=== PATIENT | female | born 1955 | race Two or more races ===

== ENCOUNTER 2022-01-18 18:26 | Emergency (ER) | payer MEDICAID ==
[~2022-01-18] VITALS: Ht 152.4 cm; Wt 77.1 kg
--- NOTE | 2022-01-18 18:30 | NUR ---
BIB FAMILY W/ C/O L-SIDED CHEST PAIN RAD TO LUE AND UPPER BACK. PER FAMILY, PT ALSO C/O SORE THROAT, WEAKNESS, AND NAUSEA/VOMITING. FAMILY AT BEDSIDE, ENDORSES THAT PT IS NOT VACCINATED. TO ER BED 7.
--- NOTE | 2022-01-18 19:05 | NUR ---
DR CASILLAS AT BEDSIDE FOR EVAL
--- NOTE | 2022-01-18 19:09 | NUR ---
IV LINE ESTABLISHED ON LAC #20, BLOOD DRAWN AND SENT TO LAB.
--- NOTE | 2022-01-18 19:20 | NUR ---
COVID SWAB COLLECTED AND SENT TO LAB.
[2022-01-18 19:27] LABS: CALCIUM, SERUM 8.7 mg/dL (8.5-10.1); CARBON DIOXIDE 32 mmol/L (21-32); CHLORIDE 102 mmol/L (98-107); CREATININE 0.8 mg/dL (0.6-1.3); GLUCOSE 111 mg/dL (74-106); POTASSIUM 3.2 mmol/L (3.5-5.1); SODIUM SERUM 139 mmol/L (136-145); UREA NITROGEN, BLOOD 9 mg/dL (7-18)
[2022-01-18 20:18] LABS: BASOPHILS % (AUTO) 0.5 % (0.0-2.0); EOSINOPHILS % (AUTO) 0.6 % (0.0-6.0); HEMATOCRIT 37 % (33-45); HEMOGLOBIN 12.5 g/dL (11.5-14.8); LYMPHOCYTES # (AUTO) 1.2 K/uL (0.8-4.8); LYMPHOCYTES % (AUTO) 16.4 % (20.0-44.0); MEAN CORPUSCULAR HGB CONC 34 g/dl (31.0-36.0); MEAN CORPUSCULAR VOLUME 86 fL (82-100); MONOCYTES # (AUTO) 0.9 K/uL (0.1-1.30); MONOCYTES % (AUTO) 11.7 % (2.0-12.0); NEUTROPHILS # (AUTO) 5.4 K/uL (1.8-8.9); NEUTROPHILS % (AUTO) 70.8 % (43.0-81.0); PLATELET COUNT (AUTO) 352 K/uL (150-450); RED BLOOD CELL COUNT(AUTO) 4.32 MIL/uL (4.0-5.2); WHITE BLOOD COUNT (AUTO) 7.6 K/uL (4.3-11.0)
[2022-01-18] MEDS ORDERED: ACETAMINOPHEN 325 MG TABLET PO ONE (21:00)
[2022-01-18] MEDS ORDERED: ACETAMINOPHEN 325 MG TABLET ONE (21:38)
[2022-01-18] MEDS ORDERED: IBUP-1955 PO (21:58)
[2022-01-18] MEDS ORDERED: BENZ-13 PO (21:58)
--- NOTE | 2022-01-18 22:18 | NUR ---
Patient discharged to home in stable condition. Written and verbal after care instructions given. Patient verbalizes understanding of instruction. IV removed. Catheter intact and site benign. Pressure and 4x4 applied to site. No bleeding noted. pt ambulatory with a steady gait
[2022-01-19 01:09] VITALS: BP 130/67
== END 2022-01-18 22:18 | disposition home or self-care (01) ==
LOC: ER 18:29
DX: R07.9 Chest pain, unspecified (principal); R05.9 Cough, unspecified; Z20.822 Contact with and (suspected) exposure to COVID-19; E78.5 Hyperlipidemia, unspecified; I10 Essential (primary) hypertension; Z86.16 Personal history of COVID-19
CPT/HCPCS: 99285; 71045; 87426; 93005; 85025; 80048; 36415; 84484 ×2; C9803

== ENCOUNTER 2022-01-22 10:48 | Emergency (ER) | payer MEDICAID ==
[~2022-01-22] VITALS: Ht 160 cm; Wt 71.7 kg
[~2022-01-22 10:48] MED LIST: BENZ-13 PO; IBUP-1955 PO
--- NOTE | 2022-01-22 11:47 | NUR ---
DR CRANDALL AT BEDSIDE FOR EVAL
[2022-01-22] MEDS ORDERED: IV NS 0.9% 1,000 ML BAG IV ONE (12:00)
[2022-01-22] MEDS ORDERED: ONDANSETRON HCL/PF - ER 4 MG/2 ML VIAL IV ONE (12:00)
[2022-01-22] MEDS ORDERED: DEXAMETHASONE SOD PHOSPHATE 10 MG/ML VIAL IV ONE (12:00)
--- NOTE | 2022-01-22 12:07 | NUR ---
TECH AT BEDSIDE FOR EKG
--- NOTE | 2022-01-22 12:11 | NUR ---
IV LINE ESTABLISHED ON LAC #20, BLOOD DRAWN AND SENT TO LAB
--- NOTE | 2022-01-22 12:13 | NUR ---
TRANSMISSION SYSTEM OPERATOR AT BEDSIDE FOR XRAY
[2022-01-22] MEDS ORDERED: DEXAMETHASONE SOD PHOSPHATE 10 MG/ML VIAL ONE (12:17)
[2022-01-22] MEDS ORDERED: ONDANSETRON HCL/PF 4 MG/2 ML VIAL ONE (12:17)
[2022-01-22 12:31] LABS: BASOPHILS % (AUTO) 0.6 % (0.0-2.0); EOSINOPHILS % (AUTO) 0.2 % (0.0-6.0); HEMATOCRIT 37 % (33-45); HEMOGLOBIN 12.3 g/dL (11.5-14.8); LYMPHOCYTES # (AUTO) 0.8 K/uL (0.8-4.8); LYMPHOCYTES % (AUTO) 10.9 % (20.0-44.0); MEAN CORPUSCULAR HGB CONC 33 g/dl (31.0-36.0); MEAN CORPUSCULAR VOLUME 86 fL (82-100); MONOCYTES # (AUTO) 0.9 K/uL (0.1-1.30); MONOCYTES % (AUTO) 10.9 % (2.0-12.0); NEUTROPHILS % (AUTO) 77.4 % (43.0-81.0); PLATELET COUNT (AUTO) 338 K/uL (150-450); RED BLOOD CELL COUNT(AUTO) 4.32 MIL/uL (4.0-5.2); WHITE BLOOD COUNT (AUTO) 7.8 K/uL (4.3-11.0)
[2022-01-22 12:42] LABS: CALCIUM, SERUM 8.7 mg/dL (8.5-10.1); CARBON DIOXIDE 31 mmol/L (21-32); CHLORIDE 101 mmol/L (98-107); CREATININE 0.7 mg/dL (0.6-1.3); GLUCOSE 104 mg/dL (74-106); SODIUM SERUM 139 mmol/L (136-145); UREA NITROGEN, BLOOD 9 mg/dL (7-18)
[2022-01-22 12:48] LABS: ALANINE AMINOTRANSFERASE 24 U/L (12-78); ALBUMIN 2.7 g/dL (3.4-5.0); ALKALINE PHOSPHATASE 91 U/L (46-116); ASPARTATE AMINOTRANSFERASE 24 U/L (15-37); BILIRUBIN,DIRECT 0.1 mg/dL (0.0-0.2); BILIRUBIN,TOTAL 0.4 mg/dL (0.2-1.0); TOTAL PROTEIN, SERUM 6.9 g/dL (6.4-8.2)
[2022-01-22] MEDS ORDERED: POTASSIUM CHLORIDE 20 MEQ TAB.PRT.SR PO ONE ×2 (14:00→14:08)
[2022-01-22] MEDS ORDERED: DOXY100C2 PO (14:00)
[2022-01-22] MEDS ORDERED: ONDA4TAB11 PO (14:00)
[2022-01-22] MEDS ORDERED: DOXYCYCLINE HYCLATE (100 MG) 100 MG TABLET PO ONE (14:00)
[2022-01-22] MEDS ORDERED: DOXYCYCLINE HYCLATE (100 MG) 100 MG TABLET ONE (14:08)
--- NOTE | 2022-01-22 14:20 | NUR ---
IV removed. Catheter intact and site benign. Pressure and 4x4 applied to site. No bleeding noted.
--- NOTE | 2022-01-22 14:20 | NUR ---
Patient discharged to home in stable condition. Written and verbal after care instructions given. Patient verbalizes understanding of instruction.
[2022-01-22 14:22] VITALS: BP 130/73
== END 2022-01-22 14:33 | disposition home or self-care (01) ==
LOC: ER 10:54
DX: J18.9 Pneumonia, unspecified organism (principal); J02.9 Acute pharyngitis, unspecified; R11.2 Nausea with vomiting, unspecified; I10 Essential (primary) hypertension; E78.5 Hyperlipidemia, unspecified
CPT/HCPCS: 99285; 96374; 71045; 96361; 96375; 93005; 70360; 85025; 80048; 83690; 80076; 36415; 84484; J1100; J2405 ×2; J7030

== ENCOUNTER 2022-03-20 18:24 | Emergency (ER) | payer MEDICAID ==
[~2022-03-20] VITALS: Ht 162.6 cm; Wt 73.0 kg
[~2022-03-20 18:24] MED LIST changes: +DOXY100C2 PO; +ONDA4TAB11 PO
[2022-03-20 18:40] VITALS: BP 134/73
[2022-03-20] MEDS ORDERED: GUAI5LIQ10 PO (19:57)
--- NOTE | 2022-03-20 20:11 | NUR ---
Patient discharged to home in stable condition. Written and verbal after care instructions given. Patient verbalizes understanding of instruction. Pt ambulatory with a steady gait
== END 2022-03-20 20:12 | disposition home or self-care (01) ==
LOC: ER 18:26
DX: R05.9 Cough, unspecified (principal); I10 Essential (primary) hypertension; E78.5 Hyperlipidemia, unspecified; Z79.899 Other long term (current) drug therapy
CPT/HCPCS: 71045-TC

== ENCOUNTER 2022-05-02 18:40 | Inpatient (IN) | payer MEDICAID ==
[~2022-05-02] VITALS: Ht 157.5 cm; Wt 74.0 kg
[~2022-05-02 18:40] MED LIST changes: +GUAI5LIQ10 PO
--- NOTE | 2022-05-02 19:56 | NUR ---
BIBFAMILY C/O ABD PAIN X 1 WEEK, PATIENT IS A/O X 4, RR EVEN AND UNLABORED NO SOB NOTED, VSS, WILL CONTINUE TO MONITOR.
--- NOTE | 2022-05-02 20:14 | NUR ---
BLOOD WORK COLLECTED
[2022-05-02 20:23] LABS: BASOPHILS % (AUTO) 0.6 % (0.0-2.0); EOSINOPHILS % (AUTO) 0.7 % (0.0-6.0); HEMATOCRIT 37 % (33-45); HEMOGLOBIN 11.8 g/dL (11.5-14.8); LYMPHOCYTES # (AUTO) 1.3 K/uL (0.8-4.8); LYMPHOCYTES % (AUTO) 18.4 % (20.0-44.0); MEAN CORPUSCULAR HGB CONC 32 g/dl (31.0-36.0); MEAN CORPUSCULAR VOLUME 81 fL (82-100); MONOCYTES # (AUTO) 0.9 K/uL (0.1-1.30); MONOCYTES % (AUTO) 12.2 % (2.0-12.0); NEUTROPHILS # (AUTO) 4.8 K/uL (1.8-8.9); NEUTROPHILS % (AUTO) 68.1 % (43.0-81.0); PLATELET COUNT (AUTO) 411 K/uL (150-450); RED BLOOD CELL COUNT(AUTO) 4.49 MIL/uL (4.0-5.2); WHITE BLOOD COUNT (AUTO) 7.1 K/uL (4.3-11.0)
[2022-05-02 20:31] LABS: CALCIUM, SERUM 9.4 mg/dL (8.5-10.1); CARBON DIOXIDE 30 mmol/L (21-32); CHLORIDE 100 mmol/L (98-107); CREATININE 0.9 mg/dL (0.6-1.3); GLUCOSE 109 mg/dL (74-106); POTASSIUM 3.6 mmol/L (3.5-5.1); SODIUM SERUM 137 mmol/L (136-145); UREA NITROGEN, BLOOD 16 mg/dL (7-18)
--- NOTE | 2022-05-02 20:33 | NUR ---
BROUGHT TO CT DEPT
[2022-05-02 20:36] LABS: ALANINE AMINOTRANSFERASE 19 U/L (12-78); ALBUMIN 2.8 g/dL (3.4-5.0); ALKALINE PHOSPHATASE 90 U/L (46-116); ASPARTATE AMINOTRANSFERASE 25 U/L (15-37); BILIRUBIN,DIRECT 0.1 mg/dL (0.0-0.2); BILIRUBIN,TOTAL 0.3 mg/dL (0.2-1.0); LIPASE 113 U/L (73-393); TOTAL PROTEIN, SERUM 7.3 g/dL (6.4-8.2)
--- NOTE | 2022-05-02 20:45 | NUR ---
COVID SWAB DONE AND SENT TO LAB
[2022-05-02 20:55] LABS: SERUM AMMONIA < 10 umol/L (11-32)
[2022-05-02 21:37] LABS: BILIRUBIN,URINE NEGATIVE (NEGATIVE); COLOR,URINE YELLOW (YELLOW); LEUKOCYTE ESTERASE ,URINE NEGATIVE (NEGATIVE); NITRITE, URINE NEGATIVE (NEGATIVE); PH,URINE 5.5 (5.0-8.0); PROTEIN,URINE NEGATIVE (NEGATIVE); UGLUCOSE NEGATIVE (NEGATIVE); UROBILINOGEN,URINE 0.2 EU/dL (0.2)
[2022-05-02 21:44] LABS: BACTERIA,URINE None seen /HPF (None Seen); CALCIUM OXALATE CRYSTALS,UR Many /HPF (None Seen); MUCUS,URINE Few /LPF (None Seen); WBC,URINE 0-2 /HPF (0-3)
[2022-05-02] MEDS ORDERED: MAGNESIUM HYDROXIDE 30 ML UDC PO PRN (22:30)
[2022-05-02] MEDS ORDERED: MORPHINE SULFATE INJ 2 MG/ML DISP.SYRIN IV PRN (22:30)
[2022-05-02] MEDS ORDERED: ZOLPIDEM TARTRATE 5 MG TABLET PO PRN (22:30)
[2022-05-02] MEDS ORDERED: ACETAMINOPHEN 325 MG TABLET PO PRN (22:30)
[2022-05-02] MEDS ORDERED: ONDANSETRON HCL/PF 4 MG/2 ML VIAL IVP PRN (22:30)
[2022-05-02] MEDS ORDERED: Z GUARD REMEDY 4 OZ OINT TP PRN (22:30)
[2022-05-02] MEDS ORDERED: HYDROCODONE/APAP 5/325MG TABLET PO PRN (22:30)
[2022-05-02] MEDS ORDERED: MAG HYDROX/AL HYDROX/SIMETH 30 ML UDC PO PRN (22:30)
--- NOTE | 2022-05-03 05:16 | NUR ---
REGISTERED RADIATION THERAPIST AT PT BESIDE
[2022-05-03 07:04] LABS: THYROID STIMULATING HORMONE 3.298 uIU/mL (0.358-3.74)
--- NOTE | 2022-05-03 07:17 | NUR ---
REPORT GIVEN TO BERRY MUNOZ
[2022-05-03 07:18] LABS: ALBUMIN 2.4 g/dL (3.4-5.0); BILIRUBIN,DIRECT 0.2 mg/dL (0.0-0.2); BILIRUBIN,TOTAL 0.5 mg/dL (0.2-1.0); CREATININE 0.8 mg/dL (0.6-1.3); MAGNESIUM 2.2 mg/dL (1.8-2.4); PHOSPHORUS 4.4 mg/dL (2.5-4.9); POTASSIUM 4.1 mmol/L (3.5-5.1); TOTAL PROTEIN, SERUM 6.3 g/dL (6.4-8.2)
[2022-05-03 07:23] LABS: BASOPHILS % (AUTO) 0.4 % (0.0-2.0); EOSINOPHILS % (AUTO) 0.9 % (0.0-6.0); HEMATOCRIT 34 % (33-45); HEMOGLOBIN 11.1 g/dL (11.5-14.8); LYMPHOCYTES # (AUTO) 1.1 K/uL (0.8-4.8); LYMPHOCYTES % (AUTO) 17.6 % (20.0-44.0); MEAN CORPUSCULAR HGB CONC 33 g/dl (31.0-36.0); MEAN CORPUSCULAR VOLUME 82 fL (82-100); MONOCYTES # (AUTO) 0.8 K/uL (0.1-1.30); MONOCYTES % (AUTO) 12.4 % (2.0-12.0); NEUTROPHILS # (AUTO) 4.4 K/uL (1.8-8.9); NEUTROPHILS % (AUTO) 68.7 % (43.0-81.0); PLATELET COUNT (AUTO) 359 K/uL (150-450); RED BLOOD CELL COUNT(AUTO) 4.08 MIL/uL (4.0-5.2); WHITE BLOOD COUNT (AUTO) 6.5 K/uL (4.3-11.0)
--- NOTE | 2022-05-03 07:31 | NUR ---
GOT BED 324-2
--- NOTE | 2022-05-03 07:54 | NUR ---
REPORT GIVEN TO ELO FOR GLORIA
[2022-05-03 08:00] VITALS: BP 117/77
--- NOTE | 2022-05-03 08:30 | NUR ---
MOVED TO INPATIENT ROOM SAFELY
[2022-05-03 08:40] VITALS: BP 127/77
--- NOTE | 2022-05-03 09:10 | NUR ---
MS BARBER NOTES PT ADMITTED TO UNIT VIA ROTOE AT 0835 WITH DIAGNOSIS OF INTRACTABLE ABDOMINAL PAIN AND ASCITES. A/O X3/4. MONEGASQUE SPEAKING, ABLE TO MAKE NEEDS KNOWN, NO C/O PAIN OR DISCOMFORTS AT THIS TIME. PT ORIENTED TO STAFF AND ROOM. V/S TAKEN AND RECORDED. PT ON ROOM AIR, TOLERATING WELL, BREATHING EVEN AND UNLABORED, NO ACUTE RESPIRATORY DISTRESS NOTED. SKIN IS INTACT WITH B/L BLE EDEMA +1. IV ACCESS ON LEFT AC #20G INTACT, PATENT AND FLUSHES WELL. LUNGS CLEAR ON AUSCULTATION. ABDOMEN SOFT AND DISTENDED. SAFETY PRECAUTIONS IMPLEMENTED: BED IN LOWEST LOCKED POSITION, SIDE RAILS UP X3, CALL LIGHT AND TRAY TABLE PLACED W/I EASY REACH OF PT. DAUGHTER/CG AT BEDSIDE AT THIS TIME. WILL CONTINUE TO MONITOR PT.
[2022-05-03] MEDS: PANTOPRAZOLE 40 MG VIAL IV SCH (09:11)
--- NOTE | 2022-05-03 09:21 | NUR ---
RN NOTES PT FOR ULTRASOUND GUIDED PARACENTESIS PROCEDURE EXPLAINED TO THE PT AND DAUGHTER/ENRICHMENT ASSISTANT, BOTH VERBALIZED UNDERSTANDING AND PT CONSENT SIGNED.
--- NOTE | 2022-05-03 11:10 | NUR ---
RN NOTES PATIENT TOLERATED US GUIDED PARACENTESIS ON LLQ PERFORMED BY DR MENDEZ WITH 7,000 ML REMOVED. ASCITES FLUIDS BROUGHT TO LAB FOR SAFEKEEPING AT THIS TIME.
[2022-05-03] MEDS ORDERED: ALBUMIN 25% 12.5 GM/50 ML BOTTLE IV ONE (12:00)
[2022-05-03] MEDS ORDERED: ALBUMIN 25% 25 GM in PREMIX 1 EA IV ONE (13:00)
[2022-05-03 16:00] VITALS: BP 110/61
--- NOTE | 2022-05-03 18:50 | NUR ---
MS RN CLPOSING ING NOTES: PATIENT IN BED AWAKE AND RESTING IN SEMI FOWLERS POSITION AT THIS TIME. A/O X4, PUERTO RICAN CUBAN SPEAKING WITH FAMILY AST BEDSIDE. ON ROOM AIR, BREATHING EVEN AND UNLABORED, NO SOB NOTED. IV ACCESS ON LEFT AC INTACT PATENT AND FLUSHES WELL. ALL NEEDS AND CARE ATTENDED WELL. SAFETY MEASURES IN PLACE: BED IN LOWEST LOCKED POSITION, SIDE-RAILS UP X2, TRAY TABLE AND CALL LIGHT W/I EASY REACH OF PT. WILL ENDORSE GLORIA TO SEW ON OPERATOR NURSE
--- NOTE | 2022-05-03 19:30 | NUR ---
MS RN OPENING NOTES: RECEIVED PATIENT IN BED AWAKE , FAMILY AT BED SIDE. PATIENT RESTING IN SEMI FOWLERS POSITION AT THIS TIME. A/O X4, IRISH COMORAN SPEAKER. ABLE TO MAKE NEEDS KNOWN. ON ROOM AIR, BREATHING EVEN AND UNLABORED, NO SOB NOTED. IV ACCESS ON LEFT AC G # 20 INTACT PATENT AND FLUSHES WELL. REMIND THE PATIENT TO PRESS CALL LIGHT FOR ASSISTANCE. PATIENT VERBALIZED UNDERSTANDING. ALL SAFETY MEASURES IN PLACE: BED IN LOWEST LOCKED POSITION, SIDE-RAILS UP X2, TABLE AND CALL LIGHT IN EASY REACH OF PT. WILL CONTINUE TO MONITOR CLOSELY.
[2022-05-03 20:00] VITALS: BP 104/54
--- NOTE | 2022-05-04 07:09 | NUR ---
MS RN CLOSING NOTES: PATIENT IN BED AWAKE . A/O X4, LATVIAN CAMBODIAN SPEAKER. ABLE TO MAKE NEEDS KNOWN. ON ROOM AIR, BREATHING EVEN AND UNLABORED, NO SOB NOTED. IV ACCESS ON LEFT AC G # 20 INTACT PATENT AND FLUSHES WELL. REMIND THE PATIENT TO PRESS CALL LIGHT FOR ASSISTANCE. PATIENT VERBALIZED UNDERSTANDING. ALL SAFETY MEASURES IN PLACE: BED IN LOWEST LOCKED POSITION, SIDE-RAILS UP X2, TABLE AND CALL LIGHT IN EASY REACH OF PT. WILL ENDORSE FOR GLORIA.
[2022-05-04 07:21] LABS: CALCIUM, SERUM 8.4 mg/dL (8.5-10.1)
--- NOTE | 2022-05-04 07:44 | NUR ---
MS RN OPENING NOTES: RECEIVED PATIENT IN BED AWAKE. PATIENT RESTING COMFORTABLE IN BED IN SEMI FOWLERS POSITION AT THIS TIME. A/O X4, ANGUILLAN TANZANIAN SPEAKER. ON ROOM AIR, BREATHING EVEN AND NON-LABORED, NO SOB NOTED. IV ACCESS ON LEFT AC G # 20 INTACT PATENT AND FLUSHES WELL. ALL SAFETY MEASURES IN PLACE: BED IN LOWEST LOCKED POSITION, SIDE-RAILS UP X2, TABLE AND CALL LIGHT IN EASY REACH OF PT. WILL CONTINUE TO MONITOR CLOSELY.
[2022-05-04] MEDS: PANTOPRAZOLE 40 MG VIAL IV SCH (08:27)
[2022-05-04 08:29] VITALS: BP 119/69
[2022-05-04 08:52] LABS: CREATININE 0.8 mg/dL (0.6-1.3); POTASSIUM 3.9 mmol/L (3.5-5.1)
[2022-05-04] MEDS ORDERED: SPIR50TA5 PO (11:06)
[2022-05-04] MEDS ORDERED: FURO-145 PO (11:06)
--- NOTE | 2022-05-04 14:29 | NUR ---
RN DISCHARGED NOTES PT DISCHARGED HOME IN STABLE CONDITION. A/O X4. ALGERIAN MICRONESIAN SPEAKING. ALL BELONGINGS ACCOUNTED FOR AND PT'S DAUGHTER SIGNED BELONGINGS LIST. IV ACCESS ON LAC G#2O REMOVED WITH NO ACTIVE BLEEDING NOTED, DRY PRESSURE DRESSING APPLIED AT SITE. HEALTH TEACHINGS/DISCHARGE INSTRUCTIONS GIVEN TO PT AND HER DAUGHTER LINDA, BOTH VERBALIZED UNDERSTANDING. EXIT FOLDER HANDED TO PT'S DAUGHTER. NAME ARMBAND REMOVED. PT LEFT UNIT @ 1420 VIA AMBULATORY WITH FAMILY. MD AND CHARGE NURSE AWARE OF DISCHARGE.
[2022-05-05] MEDS ORDERED: PANTOPRAZOLE 40 MG TABLET.DR PO SCH (07:30)
== END 2022-05-04 14:53 | disposition home or self-care (01) ==
LOC: ER 18:53 → TRANSITION 05-03 03:21 → MED 05-03 07:47
PROVIDERS: ADMIT Nurse Practitioner Acute Care; ATTEND Nurse Practitioner Acute Care
PROC: 0W9G3ZZ Drainage of Peritoneal Cavity, Percutaneous Approach (ICD-10-PCS; principal; 2022-05-03)
DX: K75.81 Nonalcoholic steatohepatitis (NASH) (principal); R18.8 Other ascites; E78.5 Hyperlipidemia, unspecified; I10 Essential (primary) hypertension; Z20.822 Contact with and (suspected) exposure to COVID-19; Z79.899 Other long term (current) drug therapy; K44.9 Diaphragmatic hernia without obstruction or gangrene
CPT/HCPCS: 36415; 71045-TC; 76942-TC; 80048-TC; 80061-TC; 80076-TC; 81001; 82140-TC; 83690-TC; 83735-TC; 84100-TC; 84443-TC; 85025-TC; 85730-TC; 87081-TC; 87086-TC; A4216; C9113; C9803; G0378; J2270; J2405; P9047

== ENCOUNTER 2022-06-17 10:03 | Inpatient (IN) | payer MEDICAID ==
[~2022-06-17] VITALS: Ht 160 cm; Wt 66.2 kg
[~2022-06-17 10:03] MED LIST changes: -DOXY100C2 PO; +FURO-145 PO; +SPIR50TA5 PO
--- NOTE | 2022-06-17 10:40 | NUR ---
PT BIB DAUGHTER IN [place] C/O GENERALIZED ABDOINAL PAIN. DENIES NAUSEA, VOMITTING OR DIARRHEA. PARACENTESIS WAS DONE HERE ON MAY 04 2022 ACCORDING TO PT. ABDOMEN APPEARS DISTENDED AND FIRM UPON PALPATION. PT AMBULATED TO BED WITH STEADY GAIT. AAOX4. VSS. AWAITING MD ORDERS.
--- NOTE | 2022-06-17 10:41 | NUR ---
DR. MCCARTNEY AT BEDSIDE FOR EVAL.
[2022-06-17 11:35] LABS: BASOPHILS # (AUTO) 0.1 K/uL (0.0-0.2); BASOPHILS % (AUTO) 0.7 % (0.0-2.0); EOSINOPHILS % (AUTO) 0.3 % (0.0-6.0); HEMATOCRIT 36 % (33-45); HEMOGLOBIN 11.9 g/dL (11.5-14.8); LYMPHOCYTES # (AUTO) 0.8 K/uL (0.8-4.8); LYMPHOCYTES % (AUTO) 8.9 % (20.0-44.0); MEAN CORPUSCULAR HGB CONC 33 g/dl (31.0-36.0); MEAN CORPUSCULAR VOLUME 81 fL (82-100); MONOCYTES # (AUTO) 0.9 K/uL (0.1-1.30); MONOCYTES % (AUTO) 10.3 % (2.0-12.0); NEUTROPHILS # (AUTO) 6.9 K/uL (1.8-8.9); NEUTROPHILS % (AUTO) 79.8 % (43.0-81.0); PLATELET COUNT (AUTO) 472 K/uL (150-450); WHITE BLOOD COUNT (AUTO) 8.6 K/uL (4.3-11.0)
[2022-06-17 11:54] LABS: ALBUMIN 2.6 g/dL (3.4-5.0); BILIRUBIN,DIRECT 0.1 mg/dL (0.0-0.2); BILIRUBIN,TOTAL 0.4 mg/dL (0.2-1.0); CALCIUM, SERUM 9.7 mg/dL (8.5-10.1); POTASSIUM 4.3 mmol/L (3.5-5.1); TOTAL PROTEIN, SERUM 7.5 g/dL (6.4-8.2)
--- NOTE | 2022-06-17 12:01 | NUR ---
CONSENT FOR PARACENTESIS SIGNED .
--- NOTE | 2022-06-17 13:43 | NUR ---
DR. MCCARTNEY AT BEDSIDE FOR PARACENTESIS PROCEDURE
--- NOTE | 2022-06-17 14:25 | NUR ---
PARACENTESIS OUTPUT 3500ML
--- NOTE | 2022-06-17 14:29 | NUR ---
FLUID SAMPLE FROM PARACENTESIS TAKEN, SENT TO LAB FOR PATHOLOGY
[2022-06-17] MEDS ORDERED: IV NS 0.9% 1,000 ML BAG IV ONE ×2 (15:00→16:00)
--- NOTE | 2022-06-17 15:36 | NUR ---
[facility] CALLED FURNACE UTILITY OPERATOR PAGED.
[2022-06-17] MEDS ORDERED: PANT40TA2 PO (15:49)
[2022-06-17] MEDS ORDERED: SPIR100T5 PO (15:49)
[2022-06-17] MEDS ORDERED: FURO40TA5 PO (15:49)
[2022-06-17] MEDS ORDERED: BISO5TAB20 PO (15:49)
--- NOTE | 2022-06-17 15:58 | NUR ---
ROOM [facility]
--- NOTE | 2022-06-17 16:25 | NUR ---
REPORT GIVEN TO LUCÍA SMART, PT AWAITING TRANSFER TO FLOOR.
[2022-06-17] MEDS ORDERED: MAGNESIUM HYDROXIDE 30 ML UDC PO PRN (16:30)
[2022-06-17] MEDS ORDERED: MORPHINE SULFATE INJ 2 MG/ML DISP.SYRIN IV PRN (16:30)
[2022-06-17] MEDS ORDERED: MAG HYDROX/AL HYDROX/SIMETH 30 ML UDC PO PRN (16:30)
[2022-06-17] MEDS ORDERED: Z GUARD REMEDY 4 OZ OINT TP PRN (16:30)
[2022-06-17] MEDS ORDERED: ACETAMINOPHEN 325 MG TABLET PO PRN (16:30)
[2022-06-17] MEDS ORDERED: HYDROCODONE/APAP 5/325MG TABLET PO PRN (16:30)
[2022-06-17] MEDS ORDERED: ONDANSETRON HCL/PF 4 MG/2 ML VIAL IVP PRN (16:30)
[2022-06-17] MEDS ORDERED: IV NS 0.9% 1,000 ML IV PRN (16:30)
--- NOTE | 2022-06-17 16:36 | NUR ---
moved to assigned inpatient room safely per protocol
--- NOTE | 2022-06-17 16:45 | NUR ---
MS RN ADMITTING NOTES ADMITTED THIS 67 YO FEMALE TO UNIT AT 1638 VIA GURNEY WITH DX OF PELVIS MASS. PT IS AOX4, KOREAN SPEAKING, WITH DAUGHTER HEIKE AT BEDSIDE, ABLE TO MAKE NEEDS KNOWN. ORIENTED TO ROOM AND STAFF. VS TAKEN, STABLE AND RECORDED PT ON ROOM AIR. TOLERATING WELL, WITH NO ACUTE RESPIRATORY DISTRESS NOTED. IV ACCESS ON THE RIGHT ANTECUBITAL G#20 WITH NS RUNNING AT 25 ML/HR, PATENT, FLUSHING WELL. LUNGS CLEAR UPON AUSCULTATION BILATERALLY. PT IS S/P PARACENTESIS DONE AT ER BY DR MCCARTNEY. CURRENT MEASUREMENT IS 99 CM, NON-TENDER, AND NON-DISTENDED WITH + BOWEL SOUNDS ON ALL FOUR QUADRANTS. LOCATION OF THE PUNCTURE WOUND FOR THE ABDOMINAL TAP IS COVERED WITH GAUZE. NO BLEEDING NO DISCHARGE NOTED. OTHERWISE, THE REST OF THE SKIN IS INTACT. SAFETY MEASURES IMPLEMENTED: BED AT LOWEST AND LOCKED POSITION, SIDE RAILS UP X2, TRAY TABLE AND CALL LIGHT WITHIN REACH. WILL CONTINUE TO MONITOR DURING MY SHIFT.
[2022-06-17 17:00] VITALS: BP 111/58
[2022-06-17] MEDS ORDERED: HEPARIN SODIUM, PORCINE 5000 UNITS/1 ML VIAL SQ ONE (17:00)
--- NOTE | 2022-06-17 18:36 | NUR ---
MS RN CLOSING NOTES PATIENT RESTING IN BED WITH HOB ELEVATED, AOX4, COOPERATIVE WITH 2 FAMILY AT BEDSIDE, NO REPORTS OF PAIN NOR DISCOMFORT NOTED, NOT IN ANY APPARENT DISTRESS, IV ACCESS ON RIGHT AC G#20 RUNNING 25 ML/HR NS PATENT FLUSHING WELL WITH NO INFILTRATION NOTED. ALL NEEDS MET. ALL DUE MEDS GIVEN. SAFETY MEASURES IN PLACE: BED IN LOWEST AND LOCKED POSITION, TRAY TABLE AND CALL LIGHT WITHIN EASY REACH. WILL ENDORSE TO COAL CRUSHER OPERATOR NURSE.
--- NOTE | 2022-06-17 19:30 | NUR ---
MS RN OPENING NOTES RECEIVED PATIENT AWAKE IN BED WITH 2 FAMILY MEMBERS AT BED SIDE. PATIENT IS AOX4, ABLE TO MAKE NEEDS KNOWN. NO PAIN NOTED. NO DISCOMFORT NOTED, NO DISTRESS NOTED IV ACCESS ON RIGHT AC G#20 RUNNING NS AT 25 ML/HR .NO INFILTRATION NOTED. ALL SAFETY MEASURES IN PLACE: BED IN LOWEST AND LOCKED POSITION, TABLE AND CALL LIGHT WITHIN EASY REACH. WILL CONTINUE TO MONITOR CLOSELY.
[2022-06-17 20:00] VITALS: BP 97/63
[2022-06-18 06:16] LABS: CALCIUM, SERUM 9.1 mg/dL (8.5-10.1); CREATININE 1.5 mg/dL (0.6-1.3); MAGNESIUM 2.3 mg/dL (1.8-2.4); PHOSPHORUS 3.9 mg/dL (2.5-4.9); POTASSIUM 4.1 mmol/L (3.5-5.1)
--- NOTE | 2022-06-18 06:25 | NUR ---
MS RN CLOSING NOTES PATIENT AWAKE IN BED . PATIENT IS AOX4, ABLE TO MAKE NEEDS KNOWN. NO PAIN NOTED. NO DISCOMFORT NOTED, NO DISTRESS NOTED .IV ACCESS ON RIGHT AC G#20 RUNNING NS AT 25 ML/HR .NO INFILTRATION NOTED. NO DISCOMFORT NOTED. PATIENT AMBULATORY AND HAVING STEADY GAIT. PATIENT IS BRP. ALL SAFETY MEASURES IN PLACE: BED IN LOWEST AND LOCKED POSITION, TABLE AND CALL LIGHT WITHIN EASY REACH. SIDE RAILS UP TIMES 2. WILL ENDORSE FOR GLORIA.
[2022-06-18 06:28] LABS: THYROID STIMULATING HORMONE 3.256 uIU/mL (0.358-3.74)
[2022-06-18 06:52] LABS: BASOPHILS % (AUTO) 0.4 % (0.0-2.0); HEMATOCRIT 35 % (33-45); HEMOGLOBIN 11.5 g/dL (11.5-14.8); LYMPHOCYTES # (AUTO) 0.9 K/uL (0.8-4.8); LYMPHOCYTES % (AUTO) 14.8 % (20.0-44.0); MEAN CORPUSCULAR HGB CONC 33 g/dl (31.0-36.0); MEAN CORPUSCULAR VOLUME 81 fL (82-100); MONOCYTES # (AUTO) 0.8 K/uL (0.1-1.30); MONOCYTES % (AUTO) 14.1 % (2.0-12.0); NEUTROPHILS # (AUTO) 4.1 K/uL (1.8-8.9); NEUTROPHILS % (AUTO) 69.7 % (43.0-81.0); PLATELET COUNT (AUTO) 392 K/uL (150-450); RED BLOOD CELL COUNT(AUTO) 4.31 MIL/uL (4.0-5.2); WHITE BLOOD COUNT (AUTO) 5.8 K/uL (4.3-11.0)
--- NOTE | 2022-06-18 07:15 | NUR ---
MS RN OPENING NOTES RECEIVED PATIENT AWAKE IN BED RESTING COMFORTABLY. PATIENT IS AOX4, THAI SPEAKING AND ABLE TO MAKE NEEDS KNOWN. NO PAIN NOTED, BUT STATES SHE HAS ANXIETY AND WORRIED ABOUT ILLNESS. NO DISCOMFORT NOTED, NO DISTRESS NOTED IV ACCESS ON RIGHT AC G#20 RUNNING NS AT 25 ML/HR . NO INFILTRATION NOTED. ALL SAFETY MEASURES IN PLACE: BED IN LOWEST AND LOCKED POSITION, TABLE AND CALL LIGHT WITHIN EASY REACH. WILL CONTINUE TO MONITOR CLOSELY.
[2022-06-18] MEDS: PANTOPRAZOLE 40 MG TABLET.DR PO SCH (07:41)
[2022-06-18 08:00] VITALS: BP 94/64
[2022-06-18 16:00] VITALS: BP 113/76
[2022-06-18 16:38] LABS: BILIRUBIN,URINE NEGATIVE (NEGATIVE); COLOR,URINE YELLOW (YELLOW); LEUKOCYTE ESTERASE ,URINE NEGATIVE (NEGATIVE); NITRITE, URINE NEGATIVE (NEGATIVE); PH,URINE 5.5 (5.0-8.0); PROTEIN,URINE TRACE mg/dl (NEGATIVE); UGLUCOSE NEGATIVE (NEGATIVE); UROBILINOGEN,URINE 0.2 EU/dL (0.2)
[2022-06-18 17:23] LABS: BACTERIA,URINE None seen /HPF (None Seen); CALCIUM OXALATE CRYSTALS,UR Few /HPF (None Seen); RBC,URINE 0-2 /HPF (0-2); SQUAMOUS EPITHELIAL CELL,UR 0-2 /HPF (None Seen); URIC ACID CRYSTALS,URINE Moderate /HPF (None Seen); URINE AMORPHOUS URATE Moderate /HPF (None Seen); WBC,URINE 0-2 /HPF (0-3)
[2022-06-18 18:48] LABS: CREATININE, URINE 177.2 MG/DL (30.0-125.0)
--- NOTE | 2022-06-18 18:54 | NUR ---
MS RN CLOSING NOTES PATIENT AWAKE IN BED WITH FAMILY AT BEDSIDE . PATIENT IS AOX4, ABLE TO MAKE NEEDS KNOWN. NO PAIN NOTED. NO DISCOMFORT NOTED, NO DISTRESS NOTED .IV ACCESS ON RIGHT AC G#20, PATNET AND INTACT .NO INFILTRATION NOTED. NO DISCOMFORT NOTED. PATIENT AMBULATORY AND HAVING STEADY GAIT. PATIENT IS BRP. ALL SAFETY MEASURES IN PLACE: BED IN LOWEST AND LOCKED POSITION, TABLE AND CALL LIGHT WITHIN EASY REACH. SIDE RAILS UP TIMES 2. WILL ENDORSE FOR GLORIA.
--- NOTE | 2022-06-18 19:30 | NUR ---
MSRN RESTING COMFORTABLY FRISIAN SPEAKING. NO NEEDS AT THIS TIME. V/S STABLE.
[2022-06-18 20:00] VITALS: BP 122/71
--- NOTE | 2022-06-18 21:00 | NUR ---
MSRN PATIENT CRYING SCARED OF ANOTHER PATIENT, STAYED WITH PATIENT FOR AWHILE TILL A FAMILY MEMBER STAYS FOR TONIGHT.
--- NOTE | 2022-06-18 21:36 | NUR ---
MSRN HAVE A FAMILY MEMBER STAY WITH PATIENT FOR TONIGHT.
--- NOTE | 2022-06-18 21:42 | NUR ---
MSRN FAMILY MEMBER CAME. REMINDED TO CALL STAFF FOR ANY NEEDS, CALL LIGHT USE INSTRUCTED. WELL UNDERSTOOD. TO CONTINUE.
[2022-06-19 06:31] LABS: BASOPHILS % (AUTO) 0.4 % (0.0-2.0); EOSINOPHILS % (AUTO) 1.5 % (0.0-6.0); HEMATOCRIT 36 % (33-45); HEMOGLOBIN 11.6 g/dL (11.5-14.8); LYMPHOCYTES # (AUTO) 1.1 K/uL (0.8-4.8); LYMPHOCYTES % (AUTO) 16.6 % (20.0-44.0); MEAN CORPUSCULAR HGB CONC 32 g/dl (31.0-36.0); MEAN CORPUSCULAR VOLUME 81 fL (82-100); MONOCYTES # (AUTO) 0.8 K/uL (0.1-1.30); MONOCYTES % (AUTO) 11.9 % (2.0-12.0); NEUTROPHILS # (AUTO) 4.8 K/uL (1.8-8.9); NEUTROPHILS % (AUTO) 69.6 % (43.0-81.0); PLATELET COUNT (AUTO) 345 K/uL (150-450); RED BLOOD CELL COUNT(AUTO) 4.44 MIL/uL (4.0-5.2); WHITE BLOOD COUNT (AUTO) 6.8 K/uL (4.3-11.0)
[2022-06-19 06:40] LABS: CALCIUM, SERUM 9.3 mg/dL (8.5-10.1); CREATININE 1.2 mg/dL (0.6-1.3); MAGNESIUM 2.2 mg/dL (1.8-2.4); PHOSPHORUS 3.6 mg/dL (2.5-4.9); POTASSIUM 4.6 mmol/L (3.5-5.1)
--- NOTE | 2022-06-19 07:00 | NUR ---
MSRN PER FAMILY DID NOT SLEEP WELL LAST NIGHT. NO NEEDS AT THIS TIME, CONTINUE MONITORING.
--- NOTE | 2022-06-19 07:28 | NUR ---
MS RN OPENING NOTES PT RECEIVED IN BED AWAKE, A/O X4. AUSTRIAN SPEAKING, DENIES C/O PAIN OR DISCOMFORTS AT THIS TIME. GRANDDAUGHTER AT BEDSIDE. ON ROOM AIR, TOLERATING WELL, BREATHING EVEN AND UNLABORED. IV ACCESS ON RAC #20G INTACT, PATENT AND SL. SAFETY PRECAUTIONS IN PLACE: BED IN LOWEST LOCKED POSITION, SIDE RAILS UP X2, CALL LIGHT AND TRAY TABLE WITHIN REACH OF PT. WILL CONTINUE TO MONITOR PT ACCORDINGLY.
[2022-06-19] MEDS: PANTOPRAZOLE 40 MG TABLET.DR PO SCH (07:53)
[2022-06-19 08:00] VITALS: BP 116/75
--- NOTE | 2022-06-19 11:30 | NUR ---
RN NOTES CALLED RADIOLOGY, SPOKED TO [facility]. HE FIRST STATED THAT THEY CAN NOT DO CT OF CHEST W/O CONTRAST AND STAT CT NEEDLE BIOPSY TODAY. THEN RECEIVED CALL FROM HIM STATED THAT THEY WILL FIND SPECIAL NURSE TO HELP THEM WITH THE PROCEDURES TODAY AND THEY WILL CALL US ONCE THEY ARE READY TO DO IT.
[2022-06-19] MEDS ORDERED: IOHEXOL-300 100 ML VIAL IV ONE (14:56)
--- NOTE | 2022-06-19 16:32 | NUR ---
RN DISCHARGED NOTES PT DISCHARGED HOME IN STABLE CONDITION. A/O X4 AND ABLE TO MAKE NEEDS KNOWN. SPEAKS FAROESE ONLY. PT PROVIDED WITH CD OF IMAGES. V/S TAKEN, STABLE AND RECORDED. NO SKIN ISSUES NOTED. ALL BELONGINGS ACCOUNTED FOR AND PT'S DAUGHTER MAGGIE SIGNED BELONGINGS LIST. IV ACCESS ON RAC G# 20 REMOVED WITH NO ACTIVE BLEEDING NOTED, DRY DRESSING APPLIED AT SITE. HEALTH TEACHINGS/ DISCHARGE INSTRUCTIONS GIVEN TO PT AND FAMILY MEMBERS AT BEDSIDE ALL VERBALIZED UNDERSTANDING. NAME ARMBAND REMOVED. PT LEFT UNIT @ 1620 AMBULATORY ACCOMPANIED BY FAMILY MEMBERS. MD AND CHARGE NURSE AWARE OF DISCHARGE.
== END 2022-06-19 16:20 | disposition home or self-care (01) | DRG 530 ==
LOC: ER 10:21 → MED 16:02
PROVIDERS: ADMIT Registered Nurse; ATTEND Internal Medicine
PROC: 0W9G3ZZ Drainage of Peritoneal Cavity, Percutaneous Approach (ICD-10-PCS; principal; 2022-06-17)
DX: C57.9 Malignant neoplasm of female genital organ, unspecified (principal); N17.0 Acute kidney failure with tubular necrosis; R18.0 Malignant ascites; D25.9 Leiomyoma of uterus, unspecified; E87.1 Hypo-osmolality and hyponatremia; E88.09 Other disorders of plasma-protein metabolism, not elsewhere classified; K74.60 Unspecified cirrhosis of liver; Z20.822 Contact with and (suspected) exposure to COVID-19; K75.81 Nonalcoholic steatohepatitis (NASH); I10 Essential (primary) hypertension; E78.5 Hyperlipidemia, unspecified; Z79.899 Other long term (current) drug therapy; C78.6 Secondary malignant neoplasm of retroperitoneum and peritoneum; K44.9 Diaphragmatic hernia without obstruction or gangrene
CPT/HCPCS: 36415; 49083; 71260-TC; 76770-TC; 76856-TC; 80048-TC; 80076-TC; 81001; 82378; 82570-TC; 83690-TC; 83735-TC; 84100-TC; 84300-TC; 84443-TC; 85025-TC; 85730-TC; 86304; 87081-TC; 89051-TC; C9803; G0378; J1644; J7030; Q9967

== ENCOUNTER 2022-10-03 09:54 | Inpatient (IN) | payer BC, MEDICAID ==
[~2022-10-03] VITALS: Ht 160 cm; Wt 63.5 kg
[2022-10-03] VITALS (29 sets, daily range): BP systolic 40–130; BP diastolic 18–115
[~2022-10-03 09:54] MED LIST changes: -BENZ-13 PO; +BISO5TAB20 PO; -FURO-145 PO; +FURO40TA5 PO; -GUAI5LIQ10 PO; -IBUP-1955 PO; -ONDA4TAB11 PO; +PANT40TA2 PO; +SPIR100T5 PO; -SPIR50TA5 PO
--- NOTE | 2022-10-03 10:00 | NUR ---
Patient in bed with daughter at bedside, Physician at bedside discussing plan pf care with daughter. Daughter verbalized agreement. All safety precautions taken.
[2022-10-03] MEDS ORDERED: ONDANSETRON HCL/PF 4 MG/2 ML VIAL ONE (10:08)
[2022-10-03] MEDS ORDERED: MORPHINE SULFATE INJ 4 MG/ML DISP.SYRIN ONE (10:08)
[2022-10-03] MEDS ORDERED: ADENOSINE 6 MG/2 ML VIAL ONE ×2 (10:10→13:59)
--- NOTE | 2022-10-03 10:13 | NUR ---
Patient in room with daughter at bedside, crash cart on standby. MD ordered Adenosine IVP. All safety precautions followed, HR 240-245. Patient connected to monitor, ER staff on standby. Daughter verbalized agreement for treatment.
--- NOTE | 2022-10-03 10:18 | NUR ---
Patient AOx4, states she feels ok, HR titrating down. MD and ER staff on standby.
[2022-10-03] MEDS ORDERED: ADENOSINE 6 MG/2 ML VIAL IVP ONE ×2 (10:25→11:00)
[2022-10-03] MEDS ORDERED: MORPHINE SULFATE INJ 2 MG/ML DISP.SYRIN IV ONE (10:30)
[2022-10-03] MEDS ORDERED: ONDANSETRON HCL/PF 4 MG/2 ML VIAL IVP ONE (10:30)
[2022-10-03] MEDS ORDERED: IV NS 0.9% 1,000 ML BAG IV ONE (10:30)
--- NOTE | 2022-10-03 11:00 | NUR ---
MOVE SHEET SUBMITTED.
[2022-10-03 11:12] LABS: CALCIUM, SERUM 7.8 mg/dL (8.5-10.1); CARBON DIOXIDE 17 mmol/L (21-32); CHLORIDE 106 mmol/L (98-107); GLUCOSE 94 mg/dL (74-106); SODIUM SERUM 139 mmol/L (136-145); UREA NITROGEN, BLOOD 17 mg/dL (7-18)
[2022-10-03 11:16] LABS: ALANINE AMINOTRANSFERASE 11 U/L (12-78); ALKALINE PHOSPHATASE 85 U/L (46-116); ASPARTATE AMINOTRANSFERASE 14 U/L (15-37); BILIRUBIN,DIRECT 0.2 mg/dL (0.0-0.2); BILIRUBIN,TOTAL 0.5 mg/dL (0.2-1.0); TOTAL PROTEIN, SERUM 4.6 g/dL (6.4-8.2)
[2022-10-03 11:32] LABS: ALBUMIN 1.4 g/dL (3.4-5.0); LIPASE < 10 U/L (73-393)
[2022-10-03] MEDS ORDERED: IOHEXOL-350 100 ML VIAL IV ONE (11:32)
[2022-10-03] MEDS ORDERED: IV NS 0.9% 250 ML IV ONE (11:32)
[2022-10-03 11:36] LABS: BASOPHILS % (AUTO) 0.7 % (0.0-2.0); EOSINOPHILS % (AUTO) 0.2 % (0.0-6.0); HEMATOCRIT 21 % (33-45); LYMPHOCYTES # (AUTO) 0.1 K/uL (0.8-4.8); LYMPHOCYTES % (AUTO) 34.5 % (20.0-44.0); MEAN CORPUSCULAR HGB CONC 33 g/dl (31.0-36.0); MEAN CORPUSCULAR VOLUME 91 fL (82-100); MONOCYTES # (AUTO) 0.1 K/uL (0.1-1.30); NEUTROPHILS # (AUTO) 0.1 K/uL (1.8-8.9); NEUTROPHILS % (AUTO) 28.6 % (43.0-81.0); PLATELET COUNT (AUTO) 96 K/uL (150-450); RED BLOOD CELL COUNT(AUTO) 2.27 MIL/uL (4.0-5.2)
[2022-10-03 11:47] LABS: HEMOGLOBIN 6.8 g/dL (11.5-14.8); WHITE BLOOD COUNT (AUTO) 0.3 K/uL (4.3-11.0)
--- NOTE | 2022-10-03 12:04 | NUR ---
Patient back from imaging, all safety precatuions taken. PAtient stable in assign room with daughter at bedside.
--- NOTE | 2022-10-03 12:23 | NUR ---
PHLEBOTOMY AT BEDSIDE
[2022-10-03] MEDS ORDERED: CEFEPIME 1 GM in IV D5W 50 ML IV ONE (12:30)
--- NOTE | 2022-10-03 13:00 | NUR ---
Blood collected, sent to lab.
--- NOTE | 2022-10-03 13:05 | NUR ---
MRSA collected sent to lab
--- NOTE | 2022-10-03 13:05 | NUR ---
Urine collected, sent to lab
[2022-10-03 13:25] LABS: BILIRUBIN,URINE NEGATIVE (NEGATIVE); COLOR,URINE YELLOW (YELLOW); LEUKOCYTE ESTERASE ,URINE NEGATIVE (NEGATIVE); NITRITE, URINE NEGATIVE (NEGATIVE); PROTEIN,URINE TRACE mg/dl (NEGATIVE); UGLUCOSE NEGATIVE (NEGATIVE); UROBILINOGEN,URINE 0.2 EU/dL (0.2)
--- NOTE | 2022-10-03 13:25 | NUR ---
Urine coolected and sent to lab Johnson cath inserte and in place.
--- NOTE | 2022-10-03 13:43 | NUR ---
Report given to Sol RN/ICU, patient cleared for transfer to Room #255.
--- NOTE | 2022-10-03 14:15 | NUR ---
URBAN PLANNING TEACHER NOTE Patient is admitted to ICU for tachycardia. Patient was transported to the unit via gurney with RN's accompany. rock contractor showed ST HR 135/min, BP upon arrival 128/63mmHg without vasopressor use. SpO2 95% with 2L oxygen, RR ~28/min. Johnson is in-situ, collecting clear and yellowish fluid. Right after transfer to bed, patient vomited bile-stained fluid once, around 50mL. Kept patient NPO. Right upper chest port-a-cath is in-situ, with blood aspirated from the port. Per hospitalist Deshaun, we can use the port. Dressing over the port is changed, CHG patch placed. All needs are attended for now. Will continue monitoring and care.
[2022-10-03] MEDS ORDERED: PANTOPRAZOLE 40 MG VIAL IV SCH (14:30)
[2022-10-03] MEDS ORDERED: ACETAMINOPHEN 325 MG TABLET PO PRN (14:30)
[2022-10-03] MEDS ORDERED: ONDANSETRON HCL/PF 4 MG/2 ML VIAL IVP PRN (14:30)
--- NOTE | 2022-10-03 14:53 | NUR ---
[employer]CHO[employer] PE TEACHER NOTE groundwater monitoring technician showed SVT HR 145/min, with BP 81/51mmHg. Reduced head of bed and lie patient on right lateral side. Informed HAT STEAMER Deshaun, who ordered a stat ECG and NS bolus. Informed RT Jose for ECG.
[2022-10-03] MEDS ORDERED: IV NS 0.9% 1,000 ML IV ONE (15:00)
[2022-10-03] MEDS ORDERED: AMIODARONE 450 MG in IV D5W 241 ML IV PRN (15:30)
--- NOTE | 2022-10-03 15:41 | NUR ---
CAREERS COUNSELLOR NOTE SBP increased to 100s during bolus NS, will continue monitoring and care. Got a critical result from lab, stating that lactic acid is 7.9 and troponin was 229. Informed hospitalist pauline.
[2022-10-03 15:45] LABS: BAND % (MANUAL) 2 % (0.0-5.0); LYMPHOCYTES % (MANUAL) 25 % (16-48); MONOCYTES % (MANUAL) 38 % (0-11.0); NEUTROPHILS % (MANUAL) 35 (42-76)
[2022-10-03] MEDS: IV NS 0.9% 1,000 ML IV PRN ×2 (15:54→23:37)
[2022-10-03] MEDS ORDERED: AMIODARONE 150 MG in IV D5W 100 ML IV ONE (16:00)
[2022-10-03] MEDS: AMIODARONE 450 MG in IV D5W 241 ML IV PRN (16:13)
[2022-10-03] MEDS ORDERED: ACETAMINOPHEN 325 MG TABLET PO ONE (17:00)
[2022-10-03] MEDS ORDERED: diphenhydrAMINE HCL 50 MG/ML VIAL IV ONE (17:00)
--- NOTE | 2022-10-03 17:21 | NUR ---
SEALER OPERATOR NOTE Bp was 72/58mmHg, informed FLOORING SALES MANAGER Deshaun, who ordered neosynephrine infusion. Await medication.
[2022-10-03] MEDS ORDERED: TBO-FILGRASTIM 300 MCG/0.5 ML SYRINGE SQ SCH (18:00)
[2022-10-03] MEDS: PHENYLEPHRINE 50 MG in IV NS 0.9% 245 ML IV PRN ×2 (18:12→22:48)
--- NOTE | 2022-10-03 18:30 | NUR ---
WELD INSPECTOR NOTE TOW MOTOR DRIVER Deshaun ordered to max out phenylephine for BP 68/58mmhg.
[2022-10-03 18:38] LABS: THYROID STIMULATING HORMONE 2.769 uIU/mL (0.358-3.74)
[2022-10-03 18:39] LABS: D-DIMER 7.17 mg/L(FEU (0.17-0.50)
[2022-10-03 18:40] LABS: C-REACTIVE PROTEIN 29.6 mg/dL (0.0-0.9)
--- NOTE | 2022-10-03 19:00 | NUR ---
BOOKING OFFICER NOTE After maxing out myra, blood pressure remains low SBP ~80mmHg, obtained an order for vasopressin from Deshaun.
[2022-10-03] MEDS ORDERED: VASOPRESSIN INJ 40 UNIT in IV NS 0.9% 38 ML IV PRN ×2 (19:30→21:00)
[2022-10-03 19:32] LABS: ABG BASE EXCESS -13.8 mmol/L; ABG OXYGEN SATURATION 94.8 % (92.0-98.5); ABG PCO2 16.6 mmHg (35.0-45.0); ABG PH 7.376 (7.350-7.450); ABG PO2 78.7 mmHg (75.0-100.0); AaDO2 187.4 mmHg; COHb 0.3 % (0.5-1.5); MetHb 0.1 % (0.0-1.5); O2Hb 94.4 % (94.0-97.0); SITE, ABG Right Radial; VENT MODE, BG Nasal Cannula
--- NOTE | 2022-10-03 19:33 | NUR ---
STAT ABG DONE BERRY MARTINEZ NOTIFIED WITH THE RESULT
[2022-10-03 20:24] LABS: CALCIUM, SERUM 7.9 mg/dL (8.5-10.1); CREATININE 1.4 mg/dL (0.6-1.3); POTASSIUM 3.6 mmol/L (3.5-5.1)
[2022-10-03] MEDS ORDERED: CEFEPIME 2 GM in IV D5W 100 ML IV SCH (21:00)
[2022-10-03] MEDS ORDERED: CEFEPIME 1 GM VIAL IV SCH (21:00)
[2022-10-03] MEDS ORDERED: IV NS 0.9% 500 ML IV ONE (21:30)
[2022-10-03] MEDS ORDERED: LEVOFLOXACIN 500 MG /D5W 100ML 500 MG in PREMIX 1 EA IV SCH (21:30)
--- NOTE | 2022-10-03 21:45 | NUR ---
ICU/RN: PT NOTED BECOMING INCREASINGLY MORE RESTLESS. PULLING LINE. PULLED OUT PIV. PRESSURE APPLIED. CATH REMOVED WITH TIP INTACT. PT ALSO NOTED TO BE DESATURATING. PLACED ON NRB @15L.
--- NOTE | 2022-10-03 22:40 | NUR ---
ICU/RN: PT STILL TACHYPNEIC AT A RATE OF 35 RPM. SPO2 90%. SCOTT PETERSON DNP NOTIFIED. NEW ORDERS RECEIVED AND CARRIED OUT. CODE STATUS DISCUSSED WITH PT FAMILY AT BEDSIDE. FAMILY DECIDED THAT PT SHOULD BE DNI BUT ALL OTHER MEASURES INCLUDING CPR AND LIFE SAVING DRUGS BE ADMINISTERED. DNI CODE ORDERED BY SCOTT PETERSON DNP.
[2022-10-03] MEDS ORDERED: SODIUM BICARBONATE SYR 50 MEQ/50 ML DISP.SYRIN ONE (23:01)
--- NOTE | 2022-10-03 23:02 | NUR ---
ICU/RN: PT NOTED TO BE IN RESPIRATORY ARREST. FAMILY AT BEDSIDE CHANGED CODE STATUS TO FULL CODE. CODE BLUE INITIATED. REEFER TO CODE BLUE SHEET.
[2022-10-03 23:21] LABS: ABG BASE EXCESS -26.7 mmol/L; ABG OXYGEN SATURATION 38.5 % (92.0-98.5); ABG PCO2 44.2 mmHg (35.0-45.0); ABG PO2 34.9 mmHg (75.0-100.0); AaDO2 633.9 mmHg; COHb 0.3 % (0.5-1.5); MetHb 0.1 % (0.0-1.5); O2Hb 38.3 % (94.0-97.0); SITE, ABG Right Radial; VENT MODE, BG NRB
--- NOTE | 2022-10-03 23:30 | NUR ---
@2303 PT CODE BLUE. RN AND RT AT BEDSIDE. DR MEADOWS AT BEDSIDE RUNNING THE CODE AND FOR INTUBATION. PT INTUBATED @2305 7.5 ETT SECURED AT 23CM AT THE LIP PT PLACED ON VENT AC 20, 475, 100% + 5. VENT ALARMS SET AND AUDIBLE. CONTINUE TO MONITOR.
[2022-10-03] MEDS ORDERED: NOREPINEPHRINE 4 MG/4 ML AMPUL IV ONE ×2 (23:52→23:58)
[2022-10-04] VITALS (25 sets, daily range): BP systolic 57–103; BP diastolic 28–79
[2022-10-04] MEDS ORDERED: NOREPINEPHRINE 32 MG in IV NS 0.9% 218 ML IV PRN ×2
[2022-10-04 00:08] LABS: BASOPHILS % (AUTO) 0.4 % (0.0-2.0); EOSINOPHILS % (AUTO) 0.3 % (0.0-6.0); HEMATOCRIT 30 % (33-45); HEMOGLOBIN 8.1 g/dL (11.5-14.8); LYMPHOCYTES # (AUTO) 0.7 K/uL (0.8-4.8); LYMPHOCYTES % (AUTO) 26.7 % (20.0-44.0); MEAN CORPUSCULAR HGB CONC 27 g/dl (31.0-36.0); MEAN CORPUSCULAR VOLUME 111 fL (82-100); MONOCYTES # (AUTO) 0.7 K/uL (0.1-1.30); MONOCYTES % (AUTO) 25.6 % (2.0-12.0); NEUTROPHILS # (AUTO) 1.3 K/uL (1.8-8.9); PLATELET COUNT (AUTO) 109 K/uL (150-450); RED BLOOD CELL COUNT(AUTO) 2.72 MIL/uL (4.0-5.2); WHITE BLOOD COUNT (AUTO) 2.7 K/uL (4.3-11.0)
[2022-10-04 00:56] LABS: ABG BASE EXCESS -29.2 mmol/L; ABG OXYGEN SATURATION 92.2 % (92.0-98.5); ABG PCO2 33.7 mmHg (35.0-45.0); ABG PH 6.756 (7.350-7.450); ABG PO2 103.1 mmHg (75.0-100.0); AaDO2 576.2 mmHg; COHb 0.3 % (0.5-1.5); MetHb 0.3 % (0.0-1.5); O2Hb 91.6 % (94.0-97.0); PEEP,BG 5 cm H2O; SITE, ABG Left Brachial
--- NOTE | 2022-10-04 00:58 | NUR ---
ABG DONE POST INTUBATION RN NOTIFIED WITH THE RESULT.
[2022-10-04] MEDS ORDERED: PHENYLEPHRINE 10 MG/ML VIAL ONE ×2 (01:04→05:50)
--- NOTE | 2022-10-04 01:09 | NUR ---
ICU/RN: ABG RESULTS RELAYED TO DR. ABARCA NEW ORDERS RECIEVED AND CARRIED OUT.
[2022-10-04] MEDS ORDERED: SODIUM BICARBONATE SYR 50 MEQ/50 ML DISP.SYRIN ONE (01:26)
[2022-10-04] MEDS ORDERED: Sodium Bicarbonate 150 MEQ in IV D5W 1,000 ML IV PRN ×4 (01:30)
[2022-10-04] MEDS ORDERED: ZOSYN IVPB 3.375 G in IV D5W 50ml IV ONE (02:00)
[2022-10-04] MEDS ORDERED: VANCOMYCIN 1 GM /D5W 250 ML PB IV ONE (02:04)
[2022-10-04] MEDS ORDERED: PIPERACI/TAZO 3.375GM/D5W 50ML PB IV ONE (02:04)
[2022-10-04] MEDS: PHENYLEPHRINE 50 MG in IV NS 0.9% 245 ML IV PRN ×2 (02:06→06:05)
[2022-10-04] MEDS: VANCOMYCIN 1 GM in IV D5W 250ml IV ONE ×2 (02:06→02:47)
--- NOTE | 2022-10-04 02:37 | NUR ---
ICU/RN: PT CONVERTED BACK TO AFIB WITH RVR AT A RATE OF [address] ABARCA RECEIVED ORDER TO RESUME AMIO DRIP AT 0.5MG/MIN. EQUIPMENT OPERATION INSTRUCTOR MARIFER ATTEMPTING TO PLACE NEW PIV.
--- NOTE | 2022-10-04 03:00 | NUR ---
ICU/RN: NEW PIV PLACED IN LEFT AC #22 BY MARIFER SMART.
[2022-10-04] MEDS: AMIODARONE 450 MG in IV D5W 241 ML IV PRN (04:25)
[2022-10-04 05:12] LABS: BASOPHILS % (AUTO) 0.5 % (0.0-2.0); HEMATOCRIT 31 % (33-45); HEMOGLOBIN 8.6 g/dL (11.5-14.8); LYMPHOCYTES # (AUTO) 0.6 K/uL (0.8-4.8); MEAN CORPUSCULAR HGB CONC 28 g/dl (31.0-36.0); MEAN CORPUSCULAR VOLUME 109 fL (82-100); MONOCYTES # (AUTO) 0.1 K/uL (0.1-1.30); MONOCYTES % (AUTO) 7.1 % (2.0-12.0); NEUTROPHILS % (AUTO) 58.4 % (43.0-81.0); PLATELET COUNT (AUTO) 102 K/uL (150-450); RED BLOOD CELL COUNT(AUTO) 2.85 MIL/uL (4.0-5.2)
[2022-10-04 05:22] LABS: WHITE BLOOD COUNT (AUTO) 1.7 K/uL (4.3-11.0)
[2022-10-04 05:38] LABS: CALCIUM, SERUM 7.8 mg/dL (8.5-10.1); CREATININE 1.7 mg/dL (0.6-1.3); MAGNESIUM 2.1 mg/dL (1.8-2.4)
[2022-10-04 05:41] LABS: PHOSPHORUS 9.7 mg/dL (2.5-4.9)
[2022-10-04 05:52] LABS: D-DIMER 11.93 mg/L(FEU (0.17-0.50)
--- NOTE | 2022-10-04 06:08 | NUR ---
ICU/RN: PT JOSHUA PEREZ NOTED PEA AT 0608. CPR INITIATED CODE BLUE CALLED. REFER TO CODE BLUE SHEET.
[2022-10-04] MEDS ORDERED: DEXTROSE 50%-WATER 50 ML DISP.SYRIN ONE (06:13)
--- NOTE | 2022-10-04 06:46 | NUR ---
ICU/RN: POST CODE POC GLUCOSE CHECK 142.
--- NOTE | 2022-10-04 07:02 | NUR ---
ICU/RN: PT NOTED TO BE IN PEA. CODE BLUE CALLED. CPR INITIATED. REFER TO CODE BLUE SHEET.
[2022-10-04 07:07] LABS: IMMUNOGLOBULIN A, SERUM 121 mg/dL (87-352); IMMUNOGLOBULIN G, SERUM 465 mg/dL (586-1602); IMMUNOGLOBULIN M, SERUM 66 mg/dL (26-217)
--- NOTE | 2022-10-04 07:29 | NUR ---
RN NOTES PER DR. BAURTO'S VERBAL ORDERS, CHANGED PT STATUS FROM FULL CODE TO DNR/DNI.
--- NOTE | 2022-10-04 07:37 | NUR ---
PT DNR/DNI. Pt presents with Asystole via Bedside and central monitor Verified No Pulse noted via Carotid Verified No Pulse noted via Right Fem Doppler. Verified No Pulse noted via Ascultation Verfied No Spontaneous breath via Auscultation. Pronounced Expiration / Time of 0737 Addendum: 10/04/22 at 0856 by REGLA GREEN RN Logged in under wrong user
--- NOTE | 2022-10-04 07:37 | NUR ---
RN NOTES VERIFIED WITH REGLA SMART THAT PT NO LONGER HAS A PULSE. NOTIFIED PT'S ROUNDING PROVIDER SCOTT PETERSON (MARIN). CALLED [facility] AND SPOKE WITH JOAN Orourke WHO PROVIDED REF# [id number]. PER JOAN, A RESEARCH ANIMAL ATTENDANT FROM [facility] WILL FOLLOW UP.
--- NOTE | 2022-10-04 09:51 | NUR ---
RN NOTES SPOKE TO STANLEY ([facility]). PER STANLEY, PT IS ELIGIBLE FOR DONATION. REF# [id number]. [facility] WILL CALL BACK TO FOLLOW UP ON DONATION PROCESS. Addendum: 10/04/22 at 0953 by IRISH CASTANEDA RN STANLEY Pacheco
--- NOTE | 2022-10-04 10:10 | NUR ---
RN CLOSING NOTES PT PICKED UP BY [facility] AND TAKEN DOWN TO THE [place].
[2022-10-04] MEDS ORDERED: ZOSYN IVPB 3.375 G in IV D5W 50ml IV SCH (12:00)
[2022-10-04 12:06] LABS: *ANA ANTI-CENTROMERE B AB <0.2 AI (0.0-0.9); *ANA ANTI-DNA(DS) AB, QN <1 IU/mL (0-9); *ANA ANTI-JO-1 <0.2 AI (0.0-0.9); *ANA ANTICHROMATIN ANTIBODY <0.2 AI (0.0-0.9); *ANA RNP ANTIBODIES <0.2 AI (0.0-0.9); *ANA SJOGREN'S ANTI-SS-A 4.8 AI (0.0-0.9); *ANA SJOGREN'S ANTI-SS-B <0.2 AI (0.0-0.9); *ANAANTI-SCLERODERMA-70 AB <0.2 AI (0.0-0.9); *ANASMITH AB <0.2 AI (0.0-0.9)
[2022-10-04] MEDS ORDERED: SODIUM BICARBONATE SYR 50 MEQ/50 ML DISP.SYRIN IV ONE (12:33)
[2022-10-04] MEDS ORDERED: EPINEPHRINE (1:10,000) SYRINGE 1 MG/10 ML DISP.SYRIN IVP ONE (12:33)
[2022-10-04] MEDS ORDERED: ATROPINE SULFATE 1 MG/10 ML DISP.SYRIN IV ONE (12:33)
[2022-10-04] MEDS ORDERED: DEXTROSE 50%-WATER 50 ML DISP.SYRIN IV ONE (12:33)
[2022-10-04] MEDS ORDERED: AMIODARONE 150 MG/3 ML VIAL IV ONE (12:33)
[2022-10-04] MEDS ORDERED: Sodium Bicarbonate 150 MEQ in IV D5W 1,000 ML IV SCH (13:00)
[2022-10-05 04:25] LABS: BAND % (MANUAL) 5 % (0.0-5.0); BASOPHILS % (MANUAL) 0 % (0.0-2.0); EOSINOPHILS % (MANUAL) 0 % (0-4); LYMPHOCYTES % (MANUAL) 27 % (16-48); MONOCYTES % (MANUAL) 25 % (0-11.0); NEUTROPHILS % (MANUAL) 43 (42-76)
[2022-10-05 05:08] LABS: *SPE A/G RATIO 0.6 (0.7-1.7); *SPE ALPHA-1-GLOBULIN 0.4 g/dL (0.0-0.4); *SPE ALPHA-2-GLOBULIN 0.9 g/dL (0.4-1.0); *SPE BETA GLOBULIN 0.6 g/dL (0.7-1.3); *SPE M-SPIKE Not Observed g/dL (Not Observed)
== END 2022-10-04 14:36 | DRG 871 ==
LOC: ER 09:56 → ICU 13:50
PROVIDERS: ADMIT Nurse Practitioner Acute Care
PROC: 5A1935Z Respiratory Ventilation, Less than 24 Consecutive Hours (ICD-10-PCS; principal; 2022-10-03)
PROC: 0BH17EZ Insertion of Endotracheal Airway into Trachea, Via Natural or Artificial Opening (ICD-10-PCS; 2022-10-03)
PROC: 5A12012 Performance of Cardiac Output, Single, Manual (ICD-10-PCS; 2022-10-03)
PROC: 5A12012 Performance of Cardiac Output, Single, Manual (ICD-10-PCS; 2022-10-04)
DX: A41.9 Sepsis, unspecified organism (principal); E43 Unspecified severe protein-calorie malnutrition; J96.00 Acute respiratory failure, unspecified whether with hypoxia or hypercapnia; R65.21 Severe sepsis with septic shock; I21.4 Non-ST elevation (NSTEMI) myocardial infarction; E87.20 Acidosis, unspecified; K76.6 Portal hypertension; I47.1 Supraventricular tachycardia; C56.9 Malignant neoplasm of unspecified ovary; R18.0 Malignant ascites; D61.818 Other pancytopenia; J91.0 Malignant pleural effusion; E87.1 Hypo-osmolality and hyponatremia; J98.11 Atelectasis; Z66 Do not resuscitate; K74.60 Unspecified cirrhosis of liver; R57.0 Cardiogenic shock; D64.9 Anemia, unspecified; E87.6 Hypokalemia; D25.9 Leiomyoma of uterus, unspecified; E78.5 Hyperlipidemia, unspecified; E88.09 Other disorders of plasma-protein metabolism, not elsewhere classified; I10 Essential (primary) hypertension; I48.91 Unspecified atrial fibrillation; Z79.899 Other long term (current) drug therapy; Z92.21 Personal history of antineoplastic chemotherapy
CPT/HCPCS: 36415; 36600; 71045-TC; 80048-TC; 80076-TC; 82607-TC; 82728-TC; 82784; 82803-TC; 82962-TC; 83540-TC; 83605-TC; 83690-TC; 83735-TC; 84100-TC; 84155; 84165; 84443-TC; 84484-TC; 84550-TC; 85025-TC; 85378-TC; 85385-TC; 85730-TC; 86140-TC; 86225; 86235; 86304; 86334; 86431-TC; 86706; 86803; 86850-TC; 87040-TC; 87081-TC; 87340; 92950-TC; 93307-TC; 94002-TC; 94003-TC; 94799-TC; A4216; A4223; C9113; C9803; G0378; J0153; J0171; J0282; J0461; J0692; J1200; J1442; J1956; J2270; J2370; J2405; J2543; J3370; J3490; J7030; J7040; J7050; J7060; J7070; P9016; Q9967